=== PATIENT | female | born 1950 | race Caucasian/White ===

== ENCOUNTER 2018-03-30 18:38 | Day surgery (SDC) | payer MEDICARE ==
[~2018-03-30 18:38] MED LIST: Lidocaine 1% PF 5 ML VIAL ONE; PHENYLEPHRINE-NS 100 MCG/ML 10 ML SYRINGE ONE; PROPOFOL 200 MG/20 ML VIAL ONE
[2018-03-30] MEDS ORDERED: Fluorouracil 100 MG, Enoxaparin Sodium 25 MG, EPINEPHrine 0.3 MG in Ophthalmic Irrigati... IVPB SCH (18:45)
[2018-03-30] MEDS ORDERED: Cyclopentolate 1% Opth Drop 2 ML BOT FS SCH (18:45)
[2018-03-30] MEDS ORDERED: Phenylephrine 2.5% Ophth Soln 5 ML BOT ONE (18:54)
[2018-03-30] MEDS ORDERED: Cyclopentolate 1% Opth Drop 2 ML BOT ONE (18:54)
[2018-03-30] MEDS ORDERED: Propofol 500 MG/50 ML VIAL ONE (19:35)
[2018-03-30] MEDS ORDERED: Fentanyl 100 MCG/2 ML VIAL ONE (19:35)
[2018-03-30] MEDS ORDERED: Midazolam HCl 2 mg/2 ml Vial ONE (19:35)
[2018-03-30] MEDS ORDERED: Ketamine 50 MG/ML VIAL ONE (19:35)
[2018-03-30] MEDS ORDERED: Ketorolac Tromethamine 30 MG/ML VIAL ONE (21:08)
[2018-03-30] MEDS ORDERED: HYDROcodone/Acetaminophen 5/325 mg Tablet ONE (21:27)
--- NOTE | 2018-03-31 02:40 | OP ---
DATE OF SURGERY: 03/30/2018 PREOPERATIVE DIAGNOSIS: Rhegmatogenous retinal detachment, right eye. POSTOPERATIVE DIAGNOSIS: Rhegmatogenous retinal detachment, right eye. PROCEDURE: Pars plana vitrectomy and retinal detachment repair, right eye. SURGEON: Kristian Estes M.D. ANESTHESIA: Local with monitored anesthesia care. PROCEDURE IN DETAIL: The patient was identified in the preoperative holding area. Appropriate infor med consent for the planned surgical procedure on the right eye had been obtained. The patient was t ransported to the operative suite. Appropriate cardiopulmonary monitoring was established. Local an esthesia was obtained using retrobulbar and modified Van Lint lid block using 50/50 mixture of 4% lid ocaine and 0.75% bupivacaine. The patient was prepped and draped in the usual sterile manner for oph thalmic surgery on the right eye. Lid speculum was placed in the right eye. The 25-gauge trocars we re placed in conjunctiva and sclera supratemporally, inferotemporally, and supranasally. Infusion li ne was placed inferotemporally. Light pipe and vitreous cutter were inserted into the eye. Core vit rectomy was performed, 360 vitreous-based dissection was performed using wide field viewing system. Holes were noted at the 12 o'clock position. Old demarcation line was noted surrounding the holes. Posterior drain retinotomy was created along the 10 o'clock meridian at the edge of the supratemporal arcades. A 270 laser was placed using endolaser delivery device sparing the inferotemporal aspect. Complete air fluid exchange was performed with 10 minutes being left for fluid to drain posteriorly . A 28% sulfur x-ray gas was infused into the eye. Trocars were removed. Supratemporal and suprana myra sclerotomy was sutured closed. Retrobulbar Kenalog and subconjunctival Ancef were placed. Antib iotic ointment placed, and the eye was patched and shielded. The patient was taken to the postoperat radha recovery unit in good condition having suffered no immediate perioperative period. Patient was i nstructed to keep patch and shield on, position right side down and follow up in the morning with Dr. Estes.
== END 2018-03-30 21:45 | disposition home or self-care (01) ==
LOC: SDC 18:38
PROVIDERS: ATTEND Ophthalmology Retina Specialist
PROC: 08T43ZZ Resection of Right Vitreous, Percutaneous Approach (ICD-10-PCS; principal; 2018-03-30)
DX: H33.001 Unspecified retinal detachment with retinal break, right eye (principal); G43.909 Migraine, unspecified, not intractable, without status migrainosus
CPT/HCPCS: 67025; 96374; J0171; J1650; J1885; J2001; J2250; J2704; J3010; J9190